=== PATIENT | male | born 1985 | race African-American/Black ===

== ENCOUNTER 2021-05-20 19:01 | Emergency (ER) | payer OTHER ==
[~2021-05-20] VITALS: Ht 177.8 cm; Wt 75.0 kg
[2021-05-20] MEDS ORDERED: ACETAMINOPHEN 325MG TABLET PO ONE (19:30)
[2021-05-20] MEDS ORDERED: LORAZEPAM 1MG TABLET PO NR (19:45)
[2021-05-20] MEDS ORDERED: IBUPROFEN 600MG TABLET PO ONE (20:00)
[2021-05-20 20:50] VITALS: BP 141/85
== END 2021-05-20 20:51 ==
LOC: ER 19:01
DX: M25.531 Pain in right wrist (principal); M25.522 Pain in left elbow
CPT/HCPCS: 73080; 73110; 99284